=== PATIENT | male | born 1960 | race African-American/Black ===

== ENCOUNTER 2019-01-11 20:20 | Emergency (ER) | payer MEDICAID ==
[~2019-01-11] VITALS: Ht 180.3 cm; Wt 83.9 kg
[2019-01-11 20:24] VITALS: BP_SYST 145
[2019-01-11] MEDS ORDERED: HYDROcodone/ACETAMIN 10-325 MG TAB PO ONE (21:15)
[2019-01-11 21:45] VITALS: BP_SYST 140
== END 2019-01-11 21:45 | disposition home or self-care (01) ==
LOC: SED 20:20
DX: S00.83XA Contusion of other part of head, initial encounter (principal); S20.211A Contusion of right front wall of thorax, initial encounter; F20.9 Schizophrenia, unspecified; F32.9 Major depressive disorder, single episode, unspecified; E11.9 Type 2 diabetes mellitus without complications; I10 Essential (primary) hypertension; Y04.0XXA Assault by unarmed brawl or fight, initial encounter; Y93.89 Activity, other specified; Y92.89 Other specified places as the place of occurrence of the external cause; Y99.8 Other external cause status
CPT/HCPCS: 99282

== ENCOUNTER 2019-07-14 18:35 | Inpatient (IN) | payer MEDICAID ==
[~2019-07-14] VITALS: Ht 180.3 cm; Wt 78.9 kg
[2019-07-14 20:10] VITALS: BP_SYST 102
[2019-07-14 21:39] LABS: BASOPHILS % (AUTO) 0.2 % (0.0-2.0); EOSINOPHILS % (AUTO) 0.4 % (0.0-4.0); HEMATOCRIT 32.4 % (36-54); HEMOGLOBIN 10.9 g/dL (14.0-18.0); LYMPHOCYTES # (AUTO) 0.3 K/uL (1.0-5.5); LYMPHOCYTES % (AUTO) 2.8 % (20.5-51.5); MEAN CORPUSCULAR HEMOGLOBIN 32 pg (27-31); MEAN CORPUSCULAR HGB CONC 34 % (32-36); MEAN CORPUSCULAR VOLUME 96 fL (79.0-98.0); MONOCYTES # (AUTO) 1.4 K/uL (0.0-1.0); MONOCYTES % (AUTO) 12.3 % (1.7-9.3); NEUTROPHILS # (AUTO) 9.5 K/uL (1.8-7.7); NEUTROPHILS % (AUTO) 84.3 % (40.0-70.0); PLATELET COUNT (AUTO) 185 K/uL (130-430); RED BLOOD CELL COUNT(AUTO) 3.36 MIL/uL (4.2-6.2); RED CELL DISTRIBUTION WIDTH 13.4 % (9.0-15.0); WHITE BLOOD COUNT (AUTO) 11.3 K/uL (4.8-10.8)
[2019-07-14 21:56] LABS: CALCIUM 8.6 mg/dL (8.4-11.0); CREATININE 1.63 mg/dL (0.55-1.30); POTASSIUM 4.2 mmol/L (3.5-5.1)
[2019-07-14 21:57] LABS: PROTHROMBIN TIME 10.7 SECS (9.5-12.5)
[2019-07-14 21:58] LABS: ALBUMIN 2.6 g/dL (3.4-4.8); TOTAL BILIRUBIN 0.3 mg/dL (0.0-1.0)
[2019-07-14] MEDS ORDERED: NACL 0.9% 1,000 ML IV ONE (23:00)
[2019-07-14] MEDS ORDERED: PIPERACILLIN/TAZO 3.375 GM in NS 50 ML IV ONE (23:00)
[2019-07-14] MEDS ORDERED: VANCOMYCIN HCL 1,000 MG in NS 250 ML IV ONE (23:00)
[2019-07-14] MEDS ORDERED: fentaNYL CITRATE/PF 100 MCG/2 ML AMP IVP ONE (23:00)
[2019-07-14] MEDS ORDERED: VANCOMYCIN HCL 1000 MG/VIAL IV ONE (23:13)
[2019-07-14] MEDS ORDERED: PIPERACILLIN/TAZOBACTAM 3.375 GM/VIAL (ZOSYN) IV ONE (23:13)
[2019-07-15 00:45] LABS: BILIRUBIN,URINE NEGATIVE (NEGATIVE); BLOOD, URINE NEGATIVE (NEGATIVE); CLARITY/URINE CLEAR (CLEAR); COLOR,URINE YELLOW (YELLOW); GLUCOSE,URINE 3+ (NEGATIVE); KETONES,URINE NEGATIVE (NEGATIVE); LEUKOCYTE ESTERASE ,URINE NEGATIVE (NEGATIVE); NITRITE, URINE NEGATIVE (NEGATIVE); PH,URINE 5.5 (5.0-8.0); PROTEIN URINE NEGATIVE (NEGATIVE)
[2019-07-15] MEDS ORDERED: ONDANSETRON HCL 4 MG/2 ML VIAL IVP PRN (01:45)
[2019-07-15] MEDS ORDERED: HYDROcodone/ACETAMIN 5-325 MG TAB (NORCO/ VICODIN) PO PRN (01:45)
[2019-07-15] MEDS ORDERED: ACETAMINOPHEN 325 MG TABLET PO PRN (01:45)
[2019-07-15] MEDS ORDERED: NACL 0.9% 1,000 ML IV SCH (01:45)
[2019-07-15] MEDS ORDERED: HYDROcodone/ACETAMIN 10-325 MG TAB PO ONE (02:11)
[2019-07-15] MEDS ORDERED: INSULIN REGULAR, HUMAN 100 UNITS/ML, 10 ML VIAL (humuLIN R) ONE (02:11)
[2019-07-15] MEDS ORDERED: HYDROcodone/ACETAMIN 10-325 MG TAB ONE (02:24)
[2019-07-15] MEDS ORDERED: INSULIN NPH 100 UNITS/ML 10 ML VIAL SUBCUT SCH (02:30)
[2019-07-15] MEDS ORDERED: INSULIN REGULAR, HUMAN 10 UNITS/0.1 ML INJ SUBCUT SCH (02:30)
[2019-07-15 02:44] VITALS: BP_SYST 130
[2019-07-15] MEDS ORDERED: HYDROcodone/ACETAMIN 10-325 MG TAB PO SCH (03:45)
[2019-07-15] MEDS ORDERED: PIPERACILLIN/TAZOBACTAM 3.375 GM/VIAL (ZOSYN) IV ONE (04:05)
[2019-07-15] MEDS: PIPERACILLIN/TAZO 3.375 GM in NS 50 ML IV SCH ×3 (05:09→18:45)
[2019-07-15] MEDS: INSULIN REGULAR, HUMAN 100 UNITS/ML, 10 ML VIAL (humuLIN R) SUBCUT PRN ×4 (06:16→20:49)
[2019-07-15] MEDS: HYDROcodone/ACETAMIN 10-325 MG TAB PO PRN ×3 (06:20→20:39)
[2019-07-15 08:13] VITALS: BP_SYST 107
[2019-07-15 12:52] VITALS: BP_SYST 119
[2019-07-15] MEDS ORDERED: PRO40 PO (13:41)
[2019-07-15] MEDS ORDERED: FURO-150 PO (13:41)
[2019-07-15] MEDS ORDERED: LISI-209 PO (13:41)
[2019-07-15] MEDS ORDERED: NEU300 PO (13:41)
[2019-07-15] MEDS ORDERED: METF1000 PO (13:41)
[2019-07-15] MEDS ORDERED: PRO20 PO (13:41)
[2019-07-15] MEDS ORDERED: REM15 PO (13:41)
[2019-07-15] MEDS ORDERED: OLAN15TA18 PO (13:41)
[2019-07-15] MEDS ORDERED: THIO2CAP2 PO (13:41)
[2019-07-15] MEDS ORDERED: TRAMADOL HCL PO (13:41)
[2019-07-15] MEDS ORDERED: IBUP-1970 PO (13:41)
[2019-07-15] MEDS ORDERED: TRAMADOL HCL 50 MG PO PRN (14:00)
[2019-07-15] MEDS ORDERED: THIOTHIXENE 5 MG PO PRN (14:00)
[2019-07-15 14:20] LABS: BASOPHILS % (AUTO) 0.1 % (0.0-2.0); EOSINOPHILS # (AUTO) 0.1 K/uL (0.0-0.4); LYMPHOCYTES # (AUTO) 0.4 K/uL (1.0-5.5); LYMPHOCYTES % (AUTO) 4.4 % (20.5-51.5); MEAN CORPUSCULAR HEMOGLOBIN 33 pg (27-31); MEAN CORPUSCULAR HGB CONC 34 % (32-36); MEAN CORPUSCULAR VOLUME 95 fL (79.0-98.0); MONOCYTES # (AUTO) 1.1 K/uL (0.0-1.0); MONOCYTES % (AUTO) 11.2 % (1.7-9.3); NEUTROPHILS # (AUTO) 7.9 K/uL (1.8-7.7); NEUTROPHILS % (AUTO) 83.3 % (40.0-70.0); PLATELET COUNT (AUTO) 175 K/uL (130-430); RED BLOOD CELL COUNT(AUTO) 3.36 MIL/uL (4.2-6.2); WHITE BLOOD COUNT (AUTO) 9.4 K/uL (4.8-10.8)
[2019-07-15 14:35] LABS: CALCIUM 8.3 mg/dL (8.4-11.0); CREATININE 1.01 mg/dL (0.55-1.30); POTASSIUM 3.8 mmol/L (3.5-5.1)
[2019-07-15] MEDS ORDERED: VANCOMYCIN HCL 1,000 MG in NS 250 ML IV SCH (16:00)
[2019-07-15] MEDS: VANCOMYCIN HCL 750 MG in NS 250 ML IV SCH (16:06)
[2019-07-15] MEDS: GABAPENTIN 300 MG CAPSULE PO SCH ×2 (16:06→20:36)
[2019-07-15 16:23] VITALS: BP_SYST 128
[2019-07-15] MEDS: metFORMIN HCL 500 MG TABLET PO SCH (18:00)
[2019-07-15 19:00] VITALS: BP_SYST 131
[2019-07-15 20:00] VITALS: BP_SYST 131
[2019-07-15] MEDS: MIRTAZAPINE 15 MG TABLET PO SCH (20:36)
[2019-07-15] MEDS: OLANZapine 5 MG TABLET PO SCH (20:37)
[2019-07-15] MEDS: ENOXAPARIN SODIUM 40 MG/0.4 ML SYRINGE SUBCUT SCH (20:47)
[2019-07-16] MEDS: PIPERACILLIN/TAZO 3.375 GM in NS 50 ML IV SCH ×4 (00:30→17:30)
[2019-07-16 01:01] VITALS: BP_SYST 123
[2019-07-16] MEDS: VANCOMYCIN HCL 750 MG in NS 250 ML IV SCH ×2 (04:11→15:55)
[2019-07-16] MEDS: INSULIN REGULAR, HUMAN 100 UNITS/ML, 10 ML VIAL (humuLIN R) SUBCUT PRN ×4 (05:45→22:59)
[2019-07-16 06:43] LABS: BASOPHILS % (AUTO) 0.2 % (0.0-2.0); EOSINOPHILS # (AUTO) 0.1 K/uL (0.0-0.4); EOSINOPHILS % (AUTO) 0.6 % (0.0-4.0); HEMATOCRIT 30.5 % (36-54); HEMOGLOBIN 10.3 g/dL (14.0-18.0); LYMPHOCYTES # (AUTO) 0.4 K/uL (1.0-5.5); LYMPHOCYTES % (AUTO) 3.5 % (20.5-51.5); MEAN CORPUSCULAR HEMOGLOBIN 32 pg (27-31); MEAN CORPUSCULAR HGB CONC 34 % (32-36); MEAN CORPUSCULAR VOLUME 95 fL (79.0-98.0); MONOCYTES # (AUTO) 1.8 K/uL (0.0-1.0); MONOCYTES % (AUTO) 15.2 % (1.7-9.3); NEUTROPHILS # (AUTO) 9.4 K/uL (1.8-7.7); NEUTROPHILS % (AUTO) 80.5 % (40.0-70.0); PLATELET COUNT (AUTO) 187 K/uL (130-430); RED CELL DISTRIBUTION WIDTH 13.1 % (9.0-15.0); WHITE BLOOD COUNT (AUTO) 11.7 K/uL (4.8-10.8)
[2019-07-16 07:00] LABS: ALBUMIN 1.9 g/dL (3.4-4.8); CALCIUM 8.3 mg/dL (8.4-11.0); CREATININE 0.84 mg/dL (0.55-1.30); POTASSIUM 3.9 mmol/L (3.5-5.1); TOTAL BILIRUBIN 0.4 mg/dL (0.0-1.0)
[2019-07-16] MEDS: PANTOPRAZOLE SODIUM 40 MG TAB PO SCH (08:30)
[2019-07-16] MEDS: FUROSEMIDE 20 MG TABLET PO SCH (08:31)
[2019-07-16] MEDS: metFORMIN HCL 500 MG TABLET PO SCH ×2 (08:33→17:30)
[2019-07-16] MEDS: FLUoxetine HCL 20 MG CAPSULE (PROzac) PO SCH (08:33)
[2019-07-16] MEDS: GABAPENTIN 300 MG CAPSULE PO SCH ×3 (08:33→22:47)
[2019-07-16] MEDS: LISINOPRIL 5 MG TABLET PO SCH (08:34)
[2019-07-16] MEDS: IBUPROFEN 800 MG TABLET PO PRN ×2 (08:38→18:08)
[2019-07-16 12:24] VITALS: BP_SYST 126
[2019-07-16 16:20] VITALS: BP_SYST 122
[2019-07-16 20:00] VITALS: BP_SYST 132
[2019-07-16] MEDS: HYDROcodone/ACETAMIN 10-325 MG TAB PO PRN (22:46)
[2019-07-16] MEDS: OLANZapine 5 MG TABLET PO SCH (22:47)
[2019-07-16] MEDS: MIRTAZAPINE 15 MG TABLET PO SCH (22:47)
[2019-07-16] MEDS: ENOXAPARIN SODIUM 40 MG/0.4 ML SYRINGE SUBCUT SCH (22:48)
[2019-07-17] MEDS: PIPERACILLIN/TAZO 3.375 GM in NS 50 ML IV SCH ×3 (00:41→12:21)
[2019-07-17 02:00] VITALS: BP_SYST 135
[2019-07-17] MEDS: VANCOMYCIN HCL 750 MG in NS 250 ML IV SCH (05:06)
[2019-07-17] MEDS: HYDROcodone/ACETAMIN 10-325 MG TAB PO PRN ×2 (05:16→14:34)
[2019-07-17 07:00] LABS: CALCIUM 8.7 mg/dL (8.4-11.0); CREATININE 0.79 mg/dL (0.55-1.30); POTASSIUM 3.5 mmol/L (3.5-5.1); TOTAL BILIRUBIN 0.4 mg/dL (0.0-1.0)
[2019-07-17] MEDS: INSULIN REGULAR, HUMAN 100 UNITS/ML, 10 ML VIAL (humuLIN R) SUBCUT PRN ×2 (07:13→12:24)
[2019-07-17 08:19] VITALS: BP_SYST 121
[2019-07-17 08:22] LABS: BASOPHILS % (AUTO) 0.2 % (0.0-2.0); EOSINOPHILS # (AUTO) 0.1 K/uL (0.0-0.4); EOSINOPHILS % (AUTO) 0.8 % (0.0-4.0); HEMATOCRIT 28.8 % (36-54); HEMOGLOBIN 9.8 g/dL (14.0-18.0); LYMPHOCYTES # (AUTO) 0.5 K/uL (1.0-5.5); LYMPHOCYTES % (AUTO) 5.6 % (20.5-51.5); MEAN CORPUSCULAR HEMOGLOBIN 32 pg (27-31); MEAN CORPUSCULAR HGB CONC 34 % (32-36); MEAN CORPUSCULAR VOLUME 95 fL (79.0-98.0); MONOCYTES # (AUTO) 1.5 K/uL (0.0-1.0); MONOCYTES % (AUTO) 15.7 % (1.7-9.3); NEUTROPHILS # (AUTO) 7.3 K/uL (1.8-7.7); NEUTROPHILS % (AUTO) 77.7 % (40.0-70.0); PLATELET COUNT (AUTO) 187 K/uL (130-430); RED BLOOD CELL COUNT(AUTO) 3.02 MIL/uL (4.2-6.2); RED CELL DISTRIBUTION WIDTH 13.4 % (9.0-15.0); WHITE BLOOD COUNT (AUTO) 9.4 K/uL (4.8-10.8)
[2019-07-17] MEDS: FLUoxetine HCL 20 MG CAPSULE (PROzac) PO SCH (09:20)
[2019-07-17] MEDS: GABAPENTIN 300 MG CAPSULE PO SCH ×2 (09:20→14:43)
[2019-07-17] MEDS: metFORMIN HCL 500 MG TABLET PO SCH (09:20)
[2019-07-17] MEDS: FUROSEMIDE 20 MG TABLET PO SCH (09:21)
[2019-07-17] MEDS: PANTOPRAZOLE SODIUM 40 MG TAB PO SCH (09:21)
[2019-07-17] MEDS: LISINOPRIL 5 MG TABLET PO SCH (09:22)
[2019-07-17 12:42] VITALS: BP_SYST 126
[2019-07-17 14:39] VITALS: BP_SYST 136
== END 2019-07-17 15:00 | disposition short-term general hospital (02) | DRG 383 ==
LOC: SED 18:35 → SMU 07-15 01:34
PROVIDERS: ADMIT Internal Medicine; ATTEND Internal Medicine
DX: L02.416 Cutaneous abscess of left lower limb (principal); N17.0 Acute kidney failure with tubular necrosis; E43 Unspecified severe protein-calorie malnutrition; E11.65 Type 2 diabetes mellitus with hyperglycemia; F25.9 Schizoaffective disorder, unspecified; E87.1 Hypo-osmolality and hyponatremia; L03.116 Cellulitis of left lower limb; F31.9 Bipolar disorder, unspecified; I10 Essential (primary) hypertension; F15.10 Other stimulant abuse, uncomplicated; Z79.899 Other long term (current) drug therapy; Z91.14 Patient's other noncompliance with medication regimen
CPT/HCPCS: 36415; 36600; 71045; 73590-TC; 80048; 80053; 81003; 82550-TC; 82803-TC; 82962; 83605; 83880; 83930-TC; 85025; 85610-TC; 85730-TC; 87040-TC; 93005; 93971; 96365; 96366; 96367; 96372; 96375; 99285; J1650; J1815; J2543; J3010; J3370; J7030; J7050

== ENCOUNTER 2020-05-03 15:36 | Emergency (ER) | payer MEDICAID ==
[~2020-05-03] VITALS: Ht 180.3 cm; Wt 75.7 kg
[~2020-05-03 15:36] MED LIST: FURO-150 PO; IBUP-1970 PO; LISI-209 PO; METF1000 PO; NEU300 PO; OLAN15TA18 PO; PRO20 PO; PRO40 PO; REM15 PO; THIO2CAP2 PO; TRAMADOL HCL PO
--- NOTE | 2020-05-03 15:58 | NUR ---
Patient to ER bed H1 to gown for evaluation. Side rails up. Assumed care.
[2020-05-03 16:00] VITALS: BP_SYST 110
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
--- NOTE | 2020-05-03 16:02 | NUR ---
ER at bedside examining patient.
[2020-05-03 16:27] VITALS: BP_SYST 110
--- NOTE | 2020-05-03 16:27 | NUR ---
Patient given written and verbal discharge instructions and verbalizes understanding. ER MD discussed with patient the results and treatment provided. Patient in stable condition. ID arm band removed. Rx of Motrin 600mg given. Patient educated on pain management and to follow up with PMD. Pain Scale 0/10. Opportunity for questions provided and answered. Medication side effect fact sheet provided.
[2020-05-03 16:28] LABS: BASOPHILS % (AUTO) 0.4 % (0.0-2.0); EOSINOPHILS # (AUTO) 0.1 K/uL (0.0-0.4); EOSINOPHILS % (AUTO) 2.1 % (0.0-4.0); HEMATOCRIT 39.4 % (36-54); HEMOGLOBIN 13.3 g/dL (14.0-18.0); LYMPHOCYTES # (AUTO) 1.1 K/uL (1.0-5.5); LYMPHOCYTES % (AUTO) 22.9 % (20.5-51.5); MEAN CORPUSCULAR HEMOGLOBIN 33 pg (27-31); MEAN CORPUSCULAR HGB CONC 34 % (32-36); MEAN CORPUSCULAR VOLUME 97 fL (79.0-98.0); MONOCYTES # (AUTO) 0.7 K/uL (0.0-1.0); MONOCYTES % (AUTO) 13.7 % (1.7-9.3); NEUTROPHILS # (AUTO) 2.9 K/uL (1.8-7.7); NEUTROPHILS % (AUTO) 60.9 % (40.0-70.0); PLATELET COUNT (AUTO) 146 K/uL (130-430); RED BLOOD CELL COUNT(AUTO) 4.05 MIL/uL (4.2-6.2); RED CELL DISTRIBUTION WIDTH 15.4 % (9.0-15.0); WHITE BLOOD COUNT (AUTO) 4.8 K/uL (4.8-10.8)
[2020-05-03 16:42] LABS: CALCIUM 8.3 mg/dL (8.4-11.0); CREATININE 1.06 mg/dL (0.55-1.30); POTASSIUM 3.4 mmol/L (3.5-5.1)
[2020-05-03 16:49] LABS: TOTAL BILIRUBIN 0.5 mg/dL (0.0-1.0)
[2020-05-03 16:50] LABS: ALBUMIN 3.7 g/dL (3.4-4.8)
== END 2020-05-03 16:27 | disposition home or self-care (01) ==
LOC: SED 15:36
DX: S00.03XA Contusion of scalp, initial encounter (principal); M54.9 Dorsalgia, unspecified; E11.9 Type 2 diabetes mellitus without complications; I10 Essential (primary) hypertension; Z79.899 Other long term (current) drug therapy; Y08.89XA Assault by other specified means, initial encounter; Y93.89 Activity, other specified; Y92.89 Other specified places as the place of occurrence of the external cause; Y99.8 Other external cause status
CPT/HCPCS: 36415; 80053; 82962; 85025; 99283; G0481; G0482